=== PATIENT | male | born 1995 | race Caucasian/White ===

== ENCOUNTER 2020-09-20 21:47 | Inpatient (IN) | payer OTHER ==
[~2020-09-20] VITALS: Ht 175.3 cm; Wt 96.0 kg
[2020-09-20 22:36] LABS: HEMATOCRIT 47.6 % (42.0-52.0); HEMOGLOBIN 15.5 g/dl (13.5-17.5); MEAN CORPUSCULAR HEMOGLOBIN 28.2 pg (27.0-33.0); MEAN CORPUSCULAR HGB CONC 32.6 g/dl (32.0-36.5); MEAN CORPUSCULAR VOLUME 86.5 fl (80.0-96.0); PLATELET COUNT, AUTOMATED 311 10^3/uL (150-450); WHITE BLOOD COUNT 7.9 10^3/uL (4.0-10.0)
[2020-09-20 23:04] LABS: AMPHETAMINES LEVEL URINE NEGATIVE (NEGATIVE); BARBITURATES URINE NEGATIVE (NEGATIVE); BENZODIAZEPINES URINE NEGATIVE (NEGATIVE); CANNABINOIDS URINE NEGATIVE (NEGATIVE); COCAINE METABOLITE URINE NEGATIVE (NEGATIVE); METHADONE URINE NEGATIVE (NEGATIVE); OPIATES URINE NEGATIVE (NEGATIVE); PHENCYCLIDINE URINE NEGATIVE (NEGATIVE)
[2020-09-20 23:17] LABS: ACETAMINOPHEN LEVEL < 2.0 UG/ML (10.0-30.0); ALBUMIN 4.3 GM/DL (3.2-5.2); ALT/SGPT 31 U/L (12-78); BILIRUBIN,DIRECT 0.4 MG/DL (0.0-0.2); BILIRUBIN,TOTAL 2.1 MG/DL (0.2-1.0); BLOOD UREA NITROGEN 14 MG/DL (7-18); CALCIUM LEVEL 9.3 MG/DL (8.5-10.1); CARBON DIOXIDE LEVEL 26 MEQ/L (21-32); CHLORIDE LEVEL 107 MEQ/L (98-107); CREATININE FOR GFR 1.15 MG/DL (0.70-1.30); ETHYL ALCOHOL (ETHANOL) 0.006 % (0.000-0.010); GLOMERULAR FILTRATION RATE > 60.0 (>60); GLUCOSE, FASTING 86 MG/DL (70-100); POTASSIUM SERUM 4.1 MEQ/L (3.5-5.1); SALICYLATE LEVEL < 1.7 MG/DL (5.0-30.0); SODIUM LEVEL 140 MEQ/L (136-145); TOTAL PROTEIN 7.8 GM/DL (6.4-8.2)
[2020-09-22] MEDS ORDERED: ACETAMINOPHEN TAB 650MG DOSE (2X325MG) PO PRN (14:00)
[2020-09-22] MEDS ORDERED: MAALOX 30 ML SUSP *UDC PO PRN (14:00)
[2020-09-22] MEDS ORDERED: traZODone 50 MG TAB PO PRN (14:00)
[2020-09-22] MEDS ORDERED: MOM 30ML SUSPENSION UDC PO PRN (14:00)
[2020-09-22 15:46] VITALS: BP 132/82
[2020-09-22 15:48] VITALS: BP 132/82
--- NOTE | 2020-09-22 18:48 | ECGEPIP ---
[facility] - ED Test Date: 2020-09-20 Pat Name: JEFERSON BONILLA Department: Room: - Gender: Male [employer]: : 1995 Requested By: KIANA Larsen Order Number: [id number] Reading MD: Sayda Urena Measurements Intervals [place] Rate: 67 P: 37 PA: 188 QRS: 45 QRSD: 72 T: 1 QT: 380 QTc: 401 Interpretive Statements SINUS RHYTHM WITH SINUS ARRHYTHMIA NO PRIOR Electronically Signed on 09-22-2020 18:47:51 EST by Sayda Urena
[2020-09-23 06:50] VITALS: BP 122/73
--- NOTE | 2020-09-23 10:15 | MHHPEPDOC ---
[facility] History & Physical History and Physical DATE OF ADMISSION: Sep 22, 2020 at 13:56 HPI: The patient was admitted to the inpatient mental health unit after subsequently becoming suicidal. He reported that he became much more upset and despondent in the . He wasnt able to describe any specifics that had preceded his particular behavior. However, he describes that he feels that stress at work had made it worse and that he had had suicidal thoughts. He had presented and was admitted to the inpatient unit. He screens negative for bipolar disorder, PTSD, and psychotic disorders at this time, primarily identifying work stressors. MEDICAL HISTORY: He has no history of diagnoses or other treatments prior. FAMILY HISTORY: Family history is non-contributory. SOCIAL HISTORY - LIVING SITUATION: Lives in the [facility]. Reports he comes from the [facility]. SOCIAL HISTORY - SMOKING: Denies any tobacco, alcohol, marijuana use. Objective Affect: Appropriate to context. Mildly dysthymic but overall reactive. Speech: Normal volume. Normal rate. Spontaneous and Fluid. Cognition: Alert, Attentive, and Oriented to person, place, time. Thought Form: Linear and goal directed. Thought Content: No thoughts of self harm. No evidence of aggressive or homicidal ideation. No evidence of delusions. No evidence of suicidal ideation. Perception: Poor. Judgement: Poor. Assessment F43.20 Adjustment disorder, unspecified Plan Hold off on medications because patients not interested in this. He primarily wants to pursue the therapy. Treatment priorities are 1) risk for suicide and 2) ineffective coping. Estimated length of stay is 3-5 days. Vital Signs Vital Signs Date Time Temp Pulse Resp B/P (MAP) Pulse Ox O2 Delivery O2 Flow Rate FiO2 09/23/20 06:50 98.0 66 14 122/73 (89) 97 Room Air Medications No Active Prescriptions or Reported Meds Allergies Coded Allergies: No Known Allergies (Verified Allergy, Unknown, 09/20/20) A-FIB/CHADSVASC A-FIB History Current/History of A-Fib/PAF?: No PAOLA MUNOZ DO Sep 23, 2020 10:15
[2020-09-23 16:10] VITALS: BP 136/67
--- NOTE | 2020-09-23 20:43 | HPEPDOC ---
[facility] Medical History & Physical Date of Admission Sep 22, 2020 Date of Service: Sep 23, 2020 History and Physical CHIEF COMPLAINT: Suicidal ideation HISTORY OF PRESENT ILLNESS: Mr. Medrano is a 25-year-old male who is in the inpatient mental health unit for suicide ideation. His family is going through a rough period. His father is having liver and kidney failure and is in the ICU. Otherwise, when I spoke with him he denied any complaints. Denied any fever or chills, lightheadedness or dizziness, chest pain, dyspnea, abdominal pain, dysuria, or diarrhea. PAST MEDICAL HISTORY: 1. Denies any known past medical history PAST SURGICAL HISTORY: 1. [place] teeth SOCIAL HISTORY: Tobacco use: Denies ETOH: Denies Illicit drug use: Denies FAMILY HISTORY: Father: Diabetes mellitus. Liver and kidney failure Mother: Diabetes mellitus ALLERGIES: Please see below. REVIEW OF SYSTEMS: CONSTITUTIONAL: Denies any fever or chills. Denies lightheadedness or dizziness. ENT: Denies sore throat. Denies dysphagia. RESPIRATORY: Denies shortness of breath. Denies cough. CARDIOVASCULAR: Denies chest pain. Denies palpitations. GASTROINTESTINAL: Denies abdominal pain. Denies diarrhea. Denies constipation GENITOURINARY: Denies dysuria. CUTANEOUS: Denies rashes. ENDOCRINE: Denies polyphagia, denies polyuria, denies polydipsia NEUROLOGICAL: Denies neuropathy. Denies paresthesias. HEMATOLOGY/ONCOLOGY: Denies easy bruisability HOME MEDICATIONS: Please see below. PHYSICAL EXAMINATION: VITAL SIGNS: Temperature 98.4, pulse 67, respiratory rate 16, blood pressure 136/67, pulse oximetry 97 % on room air. GENERAL: Comfortable, in no apparent distress. HEENT: Head normocephalic/atraumatic, EOMI, sclera clear. NECK: Supple, no JVD. RESPIRATORY: Lungs clear to auscultation bilaterally, no rales, wheeze or rhonchi. CARDIOVASCULAR: Regular rate and rhythm. ABDOMEN: Soft, nontender, no guarding or rebound tenderness. Normal bowel sounds. MUSCLE SKELETAL: Muscle strength 5/5 in all extremities. NEUROLOGICAL: CN 312 grossly intact, no focal deficits noted. PSYCHOLOGICAL: Normal mood and affect LABORATORY DATA: See below. ASSESSMENT and PLAN: 1. Suicide ideation Being managed in the inpatient mental health unit 2. Wellness Follow up with a PCP at least once a year. Thank you for consulting us, we will sign off at this time, please do not hesitate to reconsult us of this any further questions or concerns Vital Signs Vital Signs Date Time Temp Pulse Resp B/P (MAP) Pulse Ox O2 Delivery O2 Flow Rate FiO2 09/23/20 16:10 98.4 67 16 136/67 (90) 09/23/20 06:50 97 Room Air Home Medications No Active Prescriptions or Reported Meds Allergies Coded Allergies: No Known Allergies (Verified Allergy, Unknown, 09/20/20) A-FIB/CHADSVASC A-FIB History Current/History of A-Fib/PAF?: No YI FALCON DO Sep 23, 2020 20:43
[2020-09-24 06:31] VITALS: BP 144/75
--- NOTE | 2020-09-24 16:01 | MHIPNPDOC ---
[facility] Progress Note Progress Note DATE OF SERVICE: 09/24/20 HISTORY: As per Ed report: "pt states, "I've had a bunch of suicidal thoughts lately." Pt reports struggling with fleeting SI for the past 4 months, however thoughts have become worse over the past 2 wks. States he's thought of a "few plans" on how he could kill himself, but doesn't believe he would actually attempt due to hurting his family too much. States he's thought about cutting himself or jumping out a 3rd story window, but unaware if either method would actually kill him. Stressors include not being able to be home with his family while they are suffering from medical issues. States he's very close to his family and Father was hospitalized in April due to kidney and liver failure. Uncle shortly after and pt was unable to attend his . Most recently, Mother has been having some heart issues and a different uncle was hospitalized to ICU due to low blood sugar. States he's just worried about his family and wishes he coud be there for them, however was denied leave. Other suicidal stressors include an upcoming deployment. Pt continues to voice SI with no specific plan." VITAL SIGNS: See below. NEW TEST RESULTS: See below CURRENT MEDICATIONS: See below. MENTAL STATUS EXAMINATION: Patient is a 25-year old male, who is alert, cooperative, dressed in hospital clothes, wearing a face mask. Speech: Is normal in r/t/v, spontaneous and fluent. Language skills are intact. Thought processes including: linear and coherent. Thought content: negative for SI/HI, negative for thought delusions. Abstract reasoning, and computation: pretty good. Description of associations: intact. Description of abnormal or psychotic thoughts: denies TAV hallucinations, not responding to internal stimuli. Judgment: improving Insight: fair. Orientation: x3. Recent and remote memory: intact. Attention span and concentration: he is able to focus. Language: no abnormalities observed. Fund of knowledge: average. Mood: Euthymic. Affect: congruent with mood, reactive, full. DIAGNOSES: 1. F43.20 Adjustment disorder, unspecified ASSESSMENT: he is in a good mood, affect is reactive, he feels improved. MANAGEMENT PLAN: As per Dr. Herron TIME SPENT: 20 minutes. Vital Signs Vital Signs Date Time Temp Pulse Resp B/P (MAP) Pulse Ox O2 Delivery O2 Flow Rate FiO2 09/24/20 06:31 98.0 57 16 144/75 (98) 98 Room Air Current Medications Current Medications Medications (Trade) Dose Ordered Sig/[place] Route PRN Reason Start Time Stop Time Status Last Admin Dose Admin Acetaminophen (Tylenol Tab) 650 mg Q6HP PRN PO HEADACHE or DISCOMFORT 09/22/20 14:00 Al Hydrox/Mg Hydrox/Simethicone (Mylanta) 30 ml Q4HP PRN PO HEARTBURN/INDIGESTION 09/22/20 14:00 Home Med (Med Rec Complete!) ASDIRECTED XX 09/21/20 03:45 09/21/20 03:37 DC Magnesium Hydroxide (Milk Of Magnesia) 30 ml DAILYPRN PRN PO CONSTIPATION 09/22/20 14:00 Trazodone HCl (Desyrel) 50 mg QHSP PRN PO INSOMNIA 09/22/20 14:00 Allergies Coded Allergies: No Known Allergies (Verified Allergy, Unknown, 09/20/20) LALA JORGE MD Sep 24, 2020 15:59
[2020-09-24 16:23] VITALS: BP 134/70
[2020-09-25 06:11] VITALS: BP 119/57
--- NOTE | 2020-09-25 13:50 | MHIPNPDOC ---
[facility] Progress Note Progress Note DATE OF SERVICE: 09/25/20 HISTORY: As per Ed report: "pt states, "I've had a bunch of suicidal thoughts lately." Pt reports struggling with fleeting SI for the past 4 months, however thoughts have become worse over the past 2 wks. States he's thought of a "few plans" on how he could kill himself, but doesn't believe he would actually attempt due to hurting his family too much. States he's thought about cutting himself or jumping out a 3rd story window, but unaware if either method would actually kill him. Stressors include not being able to be home with his family while they are suffering from medical issues. States he's very close to his family and Father was hospitalized in April due to kidney and liver failure. Uncle shortly after and pt was unable to attend his . Most recently, Mother has been having some heart issues and a different uncle was hospitalized to ICU due to low blood sugar. States he's just worried about his family and wishes he coud be there for them, however was denied leave. Other suicidal stressors include an upcoming deployment. Pt continues to voice SI with no specific plan." VITAL SIGNS: See below. NEW TEST RESULTS: See below CURRENT MEDICATIONS: See below. MENTAL STATUS EXAMINATION: Patient is a 25-year old male, who is alert, cooperative, dressed in hospital clothes, wearing a face mask. Speech: Is normal in r/t/v, spontaneous and fluent. Language skills are intact. Thought processes including: linear and coherent. Thought content: negative for SI/HI, negative for thought delusions. Abstract reasoning, and computation: Good Description of associations: intact. Description of abnormal or psychotic thoughts: denies TAV hallucinations, not responding to internal stimuli. Judgment: improving Insight: fair. Orientation: x3. Recent and remote memory: intact. Attention span and concentration: Good Language: no abnormalities observed. Fund of knowledge: average. Mood: Euthymic. Affect: congruent with mood, reactive, full. DIAGNOSES: 1. F43.20 Adjustment disorder, unspecified ASSESSMENT: he has improvd, he is in a good mood, has been sleeping well, eating well. He sys he is anxious to get out of here, but not about something else. Denies feeling sad or orritable. Denies SI/HI. MANAGEMENT PLAN: As per Dr. Herron TIME SPENT: 20 minutes. Vital Signs Vital Signs Date Time Temp Pulse Resp B/P (MAP) Pulse Ox O2 Delivery O2 Flow Rate FiO2 09/25/20 06:11 97.7 53 18 119/57 (77) 97 Room Air Current Medications Current Medications Medications (Trade) Dose Ordered Sig/[place] Route PRN Reason Start Time Stop Time Status Last Admin Dose Admin Acetaminophen (Tylenol Tab) 650 mg Q6HP PRN PO HEADACHE or DISCOMFORT 09/22/20 14:00 Al Hydrox/Mg Hydrox/Simethicone (Mylanta) 30 ml Q4HP PRN PO HEARTBURN/INDIGESTION 09/22/20 14:00 Home Med (Med Rec Complete!) ASDIRECTED XX 09/21/20 03:45 09/21/20 03:37 DC Magnesium Hydroxide (Milk Of Magnesia) 30 ml DAILYPRN PRN PO CONSTIPATION 09/22/20 14:00 Trazodone HCl (Desyrel) 50 mg QHSP PRN PO INSOMNIA 09/22/20 14:00 Allergies Coded Allergies: No Known Allergies (Verified Allergy, Unknown, 09/20/20) LALA JORGE MD Sep 25, 2020 13:50
[2020-09-25 16:26] VITALS: BP 136/79
[2020-09-26 06:29] VITALS: BP 146/78
--- NOTE | 2020-09-26 11:10 | MHIPNPDOC ---
[facility] Progress Note Progress Note DATE OF SERVICE: 09/26/20 HISTORY: . VITAL SIGNS: See below. NEW TEST RESULTS: . CURRENT MEDICATIONS: See below. MENTAL STATUS EXAMINATION: Patient is a -year old male, who is . Speech: Is . Language skills are . Thought processes including: . Thought content: . Abstract reasoning, and computation: . Description of assoc iations: . Description of abnormal or psychotic thoughts: . Judgment: . Insight: [very limited, good, fair. poor]. Orientation: . Recent and remote memory: . Attention span and concentration: . Language: . Fund of knowledge: . Mood: . Affect: . DIAGNOSES: 1. . 2. . 3. . ASSESSMENT: MANAGEMENT PLAN: . TIME SPENT: minutes. Vital Signs Vital Signs Date Time Temp Pulse Resp B/P (MAP) Pulse Ox O2 Delivery O2 Flow Rate FiO2 09/26/20 06:29 97.6 50 12 146/78 (100) Room Air 09/25/20 06:11 97 Current Medications Current Medications Medications (Trade) Dose Ordered Sig/[place] Route PRN Reason Start Time Stop Time Status Last Admin Dose Admin Acetaminophen (Tylenol Tab) 650 mg Q6HP PRN PO HEADACHE or DISCOMFORT 09/22/20 14:00 Al Hydrox/Mg Hydrox/Simethicone (Mylanta) 30 ml Q4HP PRN PO HEARTBURN/INDIGESTION 09/22/20 14:00 Home Med (Med Rec Complete!) ASDIRECTED XX 09/21/20 03:45 09/21/20 03:37 DC Magnesium Hydroxide (Milk Of Magnesia) 30 ml DAILYPRN PRN PO CONSTIPATION 09/22/20 14:00 Trazodone HCl (Desyrel) 50 mg QHSP PRN PO INSOMNIA 09/22/20 14:00 Allergies Coded Allergies: No Known Allergies (Verified Allergy, Unknown, 09/20/20) PAOLA MUNOZ DO Sep 26, 2020 11:10
--- NOTE | 2020-09-26 11:33 | MHDSPDOC ---
[facility] Discharge Summary Discharge Summary DATE OF ADMISSION: Sep 22, 2020 at 13:56 DATE OF DISCHARGE: DISCHARGE DIAGNOSES: 1. . 2. . REASON FOR ADMISSION: CONSULTANTS INVOLVED: TREATMENT AND PROGRESS ON THE UNIT : . HOSPITAL COURSE: DISCHARGE ASSESSMENT: MENTAL STATUS EXAMINATION ON DISCHARGE: Patient is a -year old male, who is . Speech is . Language skills are . Thought processes including: . Thought content: . Abstract reasoning, and computation: . Description of associations: . Description of abnormal or psychotic thoughts: . Judgment: . Insight: . Orientation to . Recent and remote memory: . Attention span and concentration: . Language: . Fund of knowledge: . Mood: . Affect: . MEDICATIONS ON DISCHARGE: - for . - for . - for . PLAN/FOLLOWUP ARRANGEMENTS: . The amount of time spent in the coordination of care for this patient was approximately minutes. Vital Signs/I&Os Vital Signs Date Time Temp Pulse Resp B/P (MAP) Pulse Ox O2 Delivery O2 Flow Rate FiO2 09/26/20 06:29 97.6 50 12 146/78 (100) Room Air 09/25/20 06:11 97 Medications No Active Prescriptions or Reported Meds Allergies Coded Allergies: No Known Allergies (Verified Allergy, Unknown, 09/20/20) PAOLA MUNOZ DO Sep 26, 2020 11:33
== END 2020-09-26 14:11 | disposition home or self-care (01) | DRG 882 ==
LOC: M ED 21:47 → M ED INP 09-22 13:56 → M PSY 09-22 15:32
PROVIDERS: ADMIT Psychiatry & Neurology Addiction Medicine; ATTEND Psychiatry & Neurology Addiction Medicine
DX: F43.20 Adjustment disorder, unspecified (principal); R45.851 Suicidal ideations